=== PATIENT | female | born 1955 | race Caucasian/White ===

== ENCOUNTER 2019-07-22 05:05 | Inpatient (IN) ==
--- NOTE | 2019-07-11 10:50 | History and Physical Report ---
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 HISTORY OF PRESENT ILLNESS: The patient is a 63-year-old 3, para 3. General health is complicated by chronic allergies. She takes Singulair p.r.n. She has no known drug allergies. She underwent menopause in her 50s. She has had no bleeding since. She recently had ultrasound which showed multiple uterine fibroids, some as much as 6 cm, but she has a complex left ovarian tumor. It is over 8 cm and it is not simple, but complex in nature. She is presently being scheduled for a total abdominal hysterectomy, bilateral salpingo-oophorectomy and possible pelvic nodes. PAST MEDICAL HISTORY: Three children in good health. ALLERGIES: No known drug allergies. PAST SURGICAL HISTORY: She has a wisdom teeth removed. MEDICAL HISTORY: She has had chronic allergies. SOCIAL HISTORY: No smoking. No excessive alcohol intake. She is retired. FAMILY HISTORY: Mom at age 79, pancreatic cancer. Father at age 69 of myocardial infarction, he was a smoker. She has 1 brother and 1 sister. Brother is 54, has high blood pressure, in good health. Sister 61, has posterior cortical atrophy and associated difficulty walking and dementia. REVIEW OF SYSTEMS: HEAD: No symptoms of frequent or severe headaches. EYES: No symptoms of blurred vision, double vision. EARS: No symptoms of frequent ear infection, difficulty hearing. PHYSICAL EXAMINATION: GENERAL: Well-developed, well-nourished 63-year-old white female, alert, oriented x3 and cooperative in no acute distress, appear her stated age. EYES: Conjunctivae are pink. Sclerae white, no evidence of jaundice. EARS: Had normal light reflex bilaterally. NOSE: Had normal mucosa. Septum is midline. There were no polyps. THROAT: No erythema or evidence of infection. Teeth are in good state of repair. HEAD: Normocephalic, normal distribution of hair. NECK: Supple. Trachea midline. Thyroid is not enlarged. There is no adenopathy appreciated. Both carotids are of good intensity. CHEST: Clear to auscultation and percussion. No wheezes, rales or rhonchi appreciated. HEART: Had regular rhythm. S1, S2 are normal. BREASTS: Normal. ABDOMEN: Soft and nontender. PELVIC: Revealed normal-appearing cervix. Uterus was enlarged. There was also enlargement of the left adnexa. MUSCULOSKELETAL: Revealed no calf tenderness. IMPRESSIONS OF THIS CASE: Status post removal of wisdom teeth, chronic allergies, multiple uterine fibroids and enlarged complex left-sided ovarian tumor.
--- NOTE | 2019-07-11 12:16 | PAT Medication Instructions ---
Medication Instructions Date of Service July 11, 2019 Home Medications cetirizine 10 mg PO HS guaifenesin 600 mg PO BID PRN montelukast [Singulair] 10 mg PO QAM [Women's One Daily] 1 tab PO DAILY DO NOT take the morning of surgery guaifenesin 600 mg PO BID PRN montelukast [Singulair] 10 mg PO QAM [Women's One Daily] 1 tab PO DAILY Take evening before surgery cetirizine 10 mg PO HS guaifenesin 600 mg PO BID PRN (if needed) Other Notes If you have any questions please call us at [phone] or [phone] or [phone] or [phone]
--- NOTE | 2019-07-12 09:18 | Anesthesiology Consultation ---
Date of Service July 12, 2019 Assessment & Plan (1) Encounter for pre-operative examination: CHECK TEST AM DOS Chart Review Chart Review: Acceptable Risk for Surgery and Patient seen in Pre Admission Testing Teaching & Discussion Instructed NPO after midnight before surgery, except medications with 15 cc of water. Medication instructions provided according to the PAT guidelines. History Surgery Operation Date: 07/22/19 07:00 Proposed Procedures p Total Abdominal Hysterectomy, Possible Biopsy Ovarian Nodes - Chiki Gordon MD Height/Weight Height: 5 ft 5 in Weight: 93 kg Allergies Allergy/AdvReac Type Severity Reaction Status Date / Time No Known Allergies Allergy Verified 07/10/19 10:38 Medications Home Medications Medication Instructions Recorded Confirmed Last Taken cetirizine 10 mg PO HS 07/10/19 07/10/19 Unknown guaifenesin 600 mg PO BID PRN 07/10/19 07/10/19 Unknown montelukast [Singulair] 10 mg PO QAM 07/10/19 07/10/19 Unknown qcqakowa-lyqv-DI-calcium-mins 1 tab PO DAILY 07/10/19 07/10/19 Unknown [Women's One Daily] Past Medical History Medical History Environmental allergies reason for Singulair for night coughing Obesity Ovarian mass, left Exercise / Class Metabolic Activity II 4-5 Yardwork/Stairs/Walk up hill Past Family History Family History Mother FHx: pancreatic cancer Past Surgical History Surgical History History of colonoscopy History of esophagogastroduodenoscopy (EGD) Past Anesthesia History No Hx of Anesthesia Complications and No Family Hx of Anesthesia Complications History of PONV No Hx of PONV and No Hx of Motion Sickness Social History Smoking Status: Never smoker Do You Dip or Chew Tobacco: No Hx Alcohol Use: Yes Alcohol type: wine alcohol intake frequency: a few times a week Hx Substance Use: No substance use type: does not use Review of Systems Pt denies any recent chest pain, shortness of breath, palpitations, fever or URI. +congestion/cough, chronic 2/2 allergies Physical Exam Vital Signs BP: 121/83 P: 76bpm SPO2: 94% RA T: 98.7 F R: 14 ENMT Mouth: no chipped teeth and no loose teeth Thyromental Distance: > or= 3.5 Finger Breadths (.5) Mallampati Class: III Neck normal visual inspection; neck extension not limited Respiratory normal respiratory effort Auscultation: lungs clear to auscultation bilaterally Cardiovascular Rate/Rhythm: regular rate and regular rhythm Heart Sounds: no murmur Vessels: no carotid bruit Extremities: no edema Testing Laboratory Results 07/12/19 09:30 07/12/19 09:30 PT 10.2 Seconds (9.0-12.0) 07/12/19 09:30 INR 1.0 (0.9-1.1) 07/12/19 09:30 APTT 26.7 Seconds (21.0-31.0) 07/12/19 09:30 Blood Type A Positive 07/12/19 09:30 Antibody Screen NEGATIVE 07/12/19 09:30 Electrocardiogram Date: 07/12/19 Findings: + NSR @ (79) Chest X-Ray Date: 07/12/19 Findings: + NAD
[2019-07-12 10:07] LABS: Basophils # (auto) 0.01 K/uL (0-0.2); Basophils % (auto) 0.2 %; Eosinophils # (auto) 0.14 K/uL (0-0.5); Hematocrit (blood only) 42.9 % (37-47); Hemoglobin 14.4 g/dL (12.0-16.0); Immature Granulocytes # (auto) 0.01 K/uL (0.00-0.02); Immature Granulocytes % (auto) 0.2 %; Lymphocytes # (auto) 1.83 K/uL (1.2-3.4); Lymphocytes % (auto) 39.1 %; Mean Corpuscular Hemoglobin 29.7 pg (25-34); Mean Corpuscular Hgb Conc 33.6 g/dL (32-36); Mean Corpuscular Volume 88.5 fL (80-100); Mean Platelet Volume 9.6 fL (7.4-10.4); Monocytes # (auto) 0.38 K/uL (0.11-0.59); Monocytes % (auto) 8.1 %; Neutrophils # (auto) 2.31 K/uL (1.4-6.5); Neutrophils % (auto) 49.4 %; Platelet Count 218 K/uL (130-400); RDW Coefficient of Variation 13.5 % (11.5-14.5); RDW Standard Deviation 43.8 fL (36.4-46.3); Red Blood Count 4.85 M/uL (4.2-5.4); White Blood Count 4.68 K/uL (4.8-10.8)
[2019-07-12 10:17] LABS: BUN Creatinine Ratio 22.6 (10-20); Calcium 9.6 mg/dl (8.5-10.1); Creatinine Clr Calc Pharmacy 85.4 ml/min; Est GFR (African American) 97.6; Est GFR (Non-African American) 84.2; Potassium 4.1 mmol/L (3.5-5.1)
[2019-07-12 10:26] LABS: Partial Thromboplastin Time 26.7 Seconds (21.0-31.0); Prothrombin Time 10.2 Seconds (9.0-12.0)
[~2019-07-22 05:05] MED LIST: cefOXitin 2,000 MG in DEXTROSE 5% 50 ML IV SCH
[2019-07-22] MEDS ORDERED: cefOXitin 2,000 MG in DEXTROSE 5% 50 ML IV SCH (06:00)
[2019-07-22] MEDS ORDERED: LR 15ML/HR IV SCH (06:00)
[2019-07-22] MEDS ORDERED: fentaNYL citrate 100 MCG/2 ML VIAL ONE ×2 (06:44→08:36)
[2019-07-22] MEDS ORDERED: PROPOFOL IV EMULSION 10 MG/ML 20 ML VIAL IV ONE (06:44)
[2019-07-22] MEDS ORDERED: MIDAZOLAM HCL 1 MG/ML 2ML VIAL ONE (06:44)
[2019-07-22] MEDS ORDERED: LIDOCAINE HCL 2% 2 ML VIAL/AMP(20MG/ML) INFIL ONE (06:44)
[2019-07-22] MEDS ORDERED: MoRPHine SULFATE PF 1 MG/ML 10 ML AMP/VIAL ONE (06:48)
[2019-07-22] MEDS ORDERED: HEPARIN (PORCINE) 1000 UNIT/ML 10 ML (CATH LAB USE ONLY) ONE (06:55)
[2019-07-22] MEDS ORDERED: fentaNYL citrate 100 MCG/2 ML VIAL IV PRN (06:58)
[2019-07-22] MEDS ORDERED: ATROPINE SULFATE 0.1 MG/ML 10ML SYR IV PRN (06:58)
[2019-07-22] MEDS ORDERED: HYDROmorphone INJ 2 MG/ML SYR/VIAL IV PRN (06:58)
[2019-07-22] MEDS ORDERED: SCOPOLAMINE 1.5 MG TDSY TD ONE (06:58)
[2019-07-22] MEDS ORDERED: ePHEDrine sulfate 50 MG/ML AMP IV PRN ×2 (06:58→10:53)
[2019-07-22] MEDS ORDERED: ONDANSETRON INJ 2 MG/ML 2 ML VIAL IV PRN ×3 (06:58→10:53)
[2019-07-22] MEDS ORDERED: LABETALOL HCL IV 5 MG/ML 20ML IV PRN (06:58)
[2019-07-22] MEDS ORDERED: MEPERIDINE HCL 25 MG/ML CARP IV PRN ×2 (06:58→10:53)
[2019-07-22] MEDS ORDERED: SCOPOLAMINE 1.5 MG TDSY ONE (06:58)
[2019-07-22] MEDS ORDERED: PHENYLEPHRINE 100MCG/ML 5ML SYR IV PRN (06:58)
--- NOTE | 2019-07-22 07:03 | History & Physical Bridge Note ---
Date of Service July 22, 2019 History & Physical Bridge Note I have examined the patient, reviewed the History & Physical and in the interval since the performance of the History & Physical I have noted the following changes of clinical significance: no changes noted
[2019-07-22] MEDS ORDERED: DEXAMETHASONE SOD INJ 4 MG/ML VIAL ONE (07:47)
[2019-07-22] MEDS ORDERED: ROCURONIUM BROMIDE 10 MG/ML 5 ML VIAL ONE ×3 (07:47→09:29)
[2019-07-22] MEDS ORDERED: ONDANSETRON INJ 2 MG/ML 2 ML VIAL ONE (07:47)
[2019-07-22] MEDS ORDERED: NEOSTIGMINE METHYLSULFATE 5 MG/5 ML SYR ONE (07:53)
[2019-07-22] MEDS ORDERED: GLYCOPYRROLATE 0.2 MG/ML VIAL ONE (07:53)
[2019-07-22] MEDS ORDERED: MEPERIDINE HCL 50 MG/ML CARP IV PRN (10:25)
[2019-07-22] MEDS ORDERED: KETOROLAC 30 MG/ML VIAL IV PRN (10:25)
--- NOTE | 2019-07-22 10:25 | Post Operative Brief Note ---
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 Post-Op Diagnosis: Neoplasm of Uncertain Behavior Left Ovary I identified the patient and participated in the time-out.: Yes Procedure Operation Date: 07/22/19 07:00 Actual Procedures p Total Abdominal Hysterectomy, Bilateral Salpingo Oopherectomy, Peritoneal Washings(Bilateral) - Chiki Gordon MD Surgeon Chiki Gordon MD Cash Control Specialist Dr Roca Estimated Blood Loss 200 Findings Consistent with Post-Op Diagnosis Specimens uterus cervix left sided ovarian tumor right tube and ovary Drains Zelaya Catheter and Holland Drain Anesthesia Type General Complications none Disposition Accompanied Patient To Recovery: No Disposition: Recovery Room
--- NOTE | 2019-07-22 10:52 | Anesthesiology Progress Note ---
Date of Service July 22, 2019 Anesthesia Post Procedure Vital Signs Vital Signs: Temp Pulse Pulse Resp BP BP Pulse Ox 07/22/19 10:21 36.8 C 72 12 149/92 H 96 07/22/19 05:49 36.9 C 74 18 155/95 H 95 Transfer of Care Handoff Completed per policy Notes Mental Status: alert / awake / arousable Patient Amnestic to Procedure: Yes Nausea / Vomiting: adequately controlled Pain: adequately controlled Airway Patency, RR, SpO2: stable & adequate BP & HR: stable & adequate Hydration State: stable & adequate Anesthetic Complications: no major complications apparent and Pt Satisfied with anesthetic care
[2019-07-22] MEDS ORDERED: NALOXONE HCL 0.4 MG/1 ML VIAL/CARP IV PRN (10:53)
[2019-07-22] MEDS ORDERED: MoRPHine SULFATE PF 1 MG/ML 10 ML AMP/VIAL INT SPINAL ONE (10:53)
[2019-07-22] MEDS ORDERED: NALOXONE HCL 1 MG in SODIUM CHLORIDE 0.9% 1000ML 1,000 ML IV PRN (10:53)
[2019-07-22] MEDS ORDERED: DiphenhydrAMINE HCL 50 MG/ML VIAL IV PRN (10:53)
[2019-07-22] MEDS ORDERED: NALOXONE HCL 0.08 MG in SYRINGE 1.8 ML IV PRN (10:53)
[2019-07-22] MEDS ORDERED: NALBUPHINE HCL INJ 10 MG/ML AMP IV PRN (10:53)
[2019-07-22] MEDS ORDERED: HYDROmorphone INJ 0.5 MG/0.5 ML SYR IV PRN (10:53)
[2019-07-22] MEDS ORDERED: LACTATED RINGER'S 500 ML IV PRN (10:53)
--- NOTE | 2019-07-22 10:55 | Anesthesiology Progress Note ---
Date of Service July 22, 2019 Anesthesia Post Procedure Vital Signs Vital Signs: Temp Pulse Pulse Resp BP BP Pulse Ox 07/22/19 10:50 68 15 136/86 95 07/22/19 10:40 64 16 122/87 97 07/22/19 10:30 68 12 145/91 H 98 07/22/19 10:21 36.8 C 72 12 149/92 H 96 07/22/19 05:49 36.9 C 74 18 155/95 H 95 Transfer of Care Handoff Completed per policy Notes Mental Status: alert / awake / arousable Patient Amnestic to Procedure: Yes Nausea / Vomiting: adequately controlled Pain: adequately controlled Airway Patency, RR, SpO2: stable & adequate BP & HR: stable & adequate Hydration State: stable & adequate Neuraxial Anesthesia: was administered and sensory block is resolving Anesthetic Complications: no major complications apparent and Pt Satisfied with anesthetic care
[2019-07-22] MEDS ORDERED: DC INTRASPINAL MORPHINE SCH (11:00)
[2019-07-22] MEDS ORDERED: SODIUM CHLORIDE 0.9% 1000ML 1,000 ML IV SCH (11:00)
[2019-07-22] MEDS ORDERED: NO NARCOTICS OR SEDATIVES SCH (11:00)
[2019-07-22] MEDS: D5W AND LACTATED RINGERS 1,000 ML IV SCH ×2 (12:27→20:25)
--- NOTE | 2019-07-22 12:28 | Operative Report ---
DATE OF OPERATION: 07/22/2019 PROCEDURE: Total abdominal hysterectomy, bilateral salpingo-oophorectomy. INDICATIONS FOR SURGERY: Complex mass of left ovary over 8 cm. PREOPERATIVE DIAGNOSIS: Left-sided ovarian tumor. 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 SURGEON: Panfilo Gordon MD. ENVIRONMENTAL ENGINEERING MANAGER: Dr. Roca. ESTIMATED BLOOD LOSS: 200 mL. ANESTHESIA: General. OPERATIVE FINDINGS AND PROCEDURE: The patient was brought to the OR table, correctly identified by armband and conversation. General anesthesia was administered. She was also given intrathecal narcotics. Zelaya catheter was inserted aseptically in the bladder. Compression stockings were applied. Lower abdomen was painted with an alcohol based sterilizing solution, draped in the usual sterile fashion. A midline incision was made and carried down to the anterior fascia by sharp dissection. Hemostasis was secured by electrocauterization. Fascia was incised vertically from underlying muscle. Recti muscles were in the midline. Peritoneum was carefully raised and entered. Then the incision was carried down to the top of the pelvis and up towards the umbilicus. An O'Phu-O'Petersen self-retaining retractor was inserted into the uterus. We delivered a large left-sided ovarian tumor and basically clamped it proximally and distally, cut between and removed intact and sent it for pathology unruptured. We then proceeded to pack off the bowels, expose the pelvic cavity and large uterus to about 11-12 weeks' gestational size. Normal appearing right ovary and some superficial fibroids. The fundus was grasped with a double tooth tenaculum. The infundibulopelvic ligament on the right side was isolated, doubly ligated with chromic gut suture. The adnexal pedicles on the left side were re-ligated proximally and distally. Round ligament was clamped proximally with a Najma, doubly ligated with a chromic suture and cut. Then an incision was made above the vesicouterine fold. Bladder was pushed out of the operative field. The adnexa was taken off the right side. The uterine vessels were skeletonized. Pelvis was deep, doubly ligated with curved Kochers, cut and then doubly ligated with a chromic gut suture. Bladder was advanced off the cervix. We cut the cardinal ligaments by sliding off the cervix with a curved Hortensia, cutting with a stump and ligating with a chromic gut suture. This was done in 3 steps because of the length of the cardinal ligament. We then used electrocautery to shell the cervix out, entered the vaginal cuff. The angles of the vaginal cuff were suture ligated to the stumps of the cardinal ligaments on each side. Then the anterior and posterior vaginal cuff was approximated front to back with a xlgzke-dg-gmdic suture on the angles. The mid portion of the vaginal cuff was whipstitched open with a continuous chromic gut suture. A [place] drain with a safety pin was placed into the vagina, the other end into the cul-de-sac. We brought the right round ligament down, tied it into the cuff. Left round ligament was too short. We then reperitonealized peritoneal edges with a continuous chromic gut suture. Washed off the pelvis, pelvis was clean. It should be noted that on entering the pelvis, we did peritoneal washings. They were all submitted for pathological evaluation along with the ovary. We then did a careful anatomical approximation. The peritoneum was closed with a mattress suture of chromic catgut. Recti muscles were not approximated. The fascia was approximated with PDS by anchoring suture at the bottom of the defect, the top of the defect and running from the bottom up to the middle, from the top down to the middle and approximating the surfaces of the fascia. We then did a continuous running plain for the subQ. The skin was approximated with a mattress suture of nylon and staple clips. The patient tolerated the procedure well. Estimated blood loss was 200 mL, left the OR in stable condition. I attest to the content of the Intraoperative Record and any orders documented therein. Any exception s are noted below.
[2019-07-22] MEDS: CHECK SCOPOLAMINE PATCH PLACEMENT SCH ×2 (16:00→23:35)
[2019-07-22 19:11] LABS: Hematocrit (blood only) 38.5 % (37-47); Hemoglobin 12.9 g/dL (12.0-16.0)
[2019-07-23] MEDS: D5W AND LACTATED RINGERS 1,000 ML IV SCH (03:50)
[2019-07-23] MEDS: IBUPROFEN 600 MG TAB PO PRN ×3 (07:52→16:51)
[2019-07-23] MEDS: CHECK SCOPOLAMINE PATCH PLACEMENT SCH ×3 (08:33→23:15)
--- NOTE | 2019-07-23 09:28 | Obstetrical Progress Note ---
Date of Service July 23, 2019 Physical Exam Physical Exam: bowel sounds present abdomen soft vaginal bleeding scant bandage removed incision is clean and dry no calf tenderness ambulating well Results & Data Vital Signs (Past 12 Hours) Vital Signs Temp Pulse Resp BP Pulse Ox 07/23/19 07:30 36.8 C 66 18 102/62 95 07/23/19 04:30 17 95 07/23/19 03:30 36.7 C 80 18 102/69 94 07/23/19 02:40 17 96 07/23/19 01:35 16 95 07/23/19 00:30 18 94 07/22/19 23:30 36.4 C L 65 19 102/63 96
[2019-07-23] MEDS: guaiFENesin 600 MG TABCR PO SCH ×2 (10:22→20:34)
[2019-07-23] MEDS: OXYCODONE/ACETAMINOPHEN 5mg/325mg TAB PO PRN (20:36)
[2019-07-24] MEDS: IBUPROFEN 600 MG TAB PO PRN ×4 (01:43→23:33)
[2019-07-24] MEDS: CHECK SCOPOLAMINE PATCH PLACEMENT SCH (07:34)
[2019-07-24] MEDS: guaiFENesin 600 MG TABCR PO SCH ×2 (07:37→20:23)
--- NOTE | 2019-07-24 08:13 | Obstetrical Progress Note ---
Date of Service July 24, 2019 Physical Exam Physical Exam: abdomen soft and non tender bowel sounds hypoactive incision is clean and dry jacob drain removed from vaginal cuff no calf tenderness ambulating well hgb 12. patient is not passing flatus Results & Data Vital Signs (Past 12 Hours) Vital Signs Temp Pulse Resp BP Pulse Ox 07/23/19 23:15 37.4 C 74 18 125/75 93
[2019-07-24] MEDS: OXYCODONE/ACETAMINOPHEN 5mg/325mg TAB PO PRN (11:50)
[2019-07-24] MEDS ORDERED: MAGNESIUM HYDROXIDE SUSP 30 ML UDC PO PRN (13:26)
[2019-07-24] MEDS ORDERED: bisacodyL 10 MG SUPP PR PRN (13:28)
[2019-07-24] MEDS ORDERED: bisacodyL 5 MG TABEC PO ONE (20:00)
[2019-07-25] MEDS: IBUPROFEN 600 MG TAB PO PRN (08:20)
[2019-07-25] MEDS: guaiFENesin 600 MG TABCR PO SCH (08:20)
[2019-07-25] MEDS: CHECK SCOPOLAMINE PATCH PLACEMENT SCH (08:21)
--- NOTE | 2019-07-25 10:19 | Obstetrical Progress Note ---
Date of Service July 25, 2019 Physical Exam Physical Exam: abdomen soft and non tender passing flatus no calf tenderness ambulating well no calf tenderness hgb 12 .9 Results & Data Vital Signs (Past 12 Hours) Vital Signs Temp Pulse Resp BP Pulse Ox 07/25/19 08:15 37.4 C 88 19 147/90 H 92
--- NOTE | 2019-07-25 10:57 | Discharge Summary ---
Mrs. Monten[place]ro was admitted with a left-sided ovarian tumor along with multiple fibroids. She had a complex adnexal mass left adnexa over 8 cm. She was taken to the OR the day of admission, given prophylactic antibiotics. She underwent total abdominal hysterectomy, bilateral salpingo-oophorectomy along with peritoneal washings. The left ovary was removed intact. Postoperatively, the patient did well. A Eloisa drain was placed in the vaginal cuff. It was not removed until the second day. The patient did experience some postoperative ileus and did not open up until evening of the 2nd postoperative day, at which time, she started to pass gas and have bowel movements. On the third postoperative day, she was ambulating well, eating well. Incision was clean and dry. She was given prescriptions for Percocet and Motrin for pain control, also instructed to call the office if she had a temperature over 100 or any heavy bleeding and to return in a week for removal of mello.
--- NOTE | 2019-08-01 13:23 | Coding Query ---
Coding Query: Your help is needed for correct coding of this account; please clarify if the patient's Post-operative Ileus was: (x ) expected out of the surgery ( ) unexpected complication from the surgery ( )other please specify Thank you Christina RICHARD
== END 2019-07-25 11:00 | disposition home or self-care (01) | DRG 742 ==
LOC: ASU 05:05 → 4N 10:25 → 4S2 07-23 18:12